=== PATIENT | female | born 1955 | race Asian ===

== ENCOUNTER 2023-04-21 15:53 | Emergency (ER) | payer MEDICAID ==
[~2023-04-21] VITALS: Ht 160 cm; Wt 91.0 kg
[2023-04-21 16:12] VITALS: BP 164/88; PULSE 105; RESP 18; TEMP 98.3; O2SAT 98
[2023-04-21 19:40] LABS: BASOPHILS % 0.7 % (0.0-2.0); EOSINOPHILS % 0.4 % (0.0-5.0); HEMATOCRIT. 39.4 % (36.0-48.0); HEMOGLOBIN. 13.1 g/dL (12.0-16.0); LYMPHOCYTES % 39.3 % (20.0-50.0); MEAN CORPUSCULAR HEMOGLOBIN 29.9 pg (28.0-32.0); MEAN CORPUSCULAR HGB CONC 33.2 g/dL (31.0-37.0); MEAN CORPUSCULAR VOLUME 90.1 fL (81.0-99.0); MEAN PLATELET VOLUME 7.8 fl (7.4-10.4); MONOCYTES % 14.1 % (2.0-8.0); NEUTROPHILS % 45.5 % (40.0-76.0); PLATELET 231 x1000/uL (130-400); RED BLOOD CELL COUNT 4.37 mill/uL (4.2-5.4); RED CELL DISTRIBUTION WIDTH 12.6 % (11.6-14.6); WHITE BLOOD COUNT 6.5 x1000/uL (4.5-11.0)
[2023-04-21 19:52] LABS: ALANINE AMINOTRANSFERASE 29 IU/L (10-49); ALBUMIN 4.2 g/dL (3.2-4.8); ASPARTATE AMINOTRANSFERASE 33 IU/L (<34); BILIRUBIN TOTAL 0.5 mg/dL (0.1-1.0); CALCIUM 9.1 mg/dL (8.7-10.4); CARBON DIOXIDE 24 mEq/L (21-32); CHLORIDE 104 mEq/L (98-107); CREATININE 0.6 mg/dL (0.6-1.0); GLUCOSE 145 mg/dL (70-105); POTASSIUM 4.1 mEq/L (3.5-5.1); PROTEIN TOTAL 7.4 g/dL (6.0-8.3); SODIUM 135 mEq/L (136-145); UREA NITROGEN BLOOD 6 mg/dL (9-23)
[2023-04-21] MEDS ORDERED: FLUT9.9S BOTHNSTRLS (21:22)
== END 2023-04-21 21:53 | disposition home or self-care (01) ==
LOC: ER 15:53
DX: R05.9 Cough, unspecified (principal); R09.82 Postnasal drip; E11.9 Type 2 diabetes mellitus without complications
CPT/HCPCS: 36415; 71045; 71250; 80053; 85025; 93005; 99285